=== PATIENT | male | born 1955 | race Caucasian/White ===

== ENCOUNTER → 2022-08-18 | Outpatient (CLI) | payer MEDICARE ==
[~2022-08-18] MED LIST: ATIVAN0.5 MG PO; OMEPRAZOLE20 M1 PO; ST. JOSEPH81 M2 PO
== END ==
LOC: RAD 08:36
DX: D17.9 Benign lipomatous neoplasm, unspecified (principal); R59.1 Generalized enlarged lymph nodes
CPT/HCPCS: Q9967

== ENCOUNTER → 2023-10-18 | Outpatient (CLI) | payer MEDICARE, MEDICAID | LOC: RAD 09:08 | DX: Z01.818 Encounter for other preprocedural examination (principal) ==

== ENCOUNTER 2023-12-06 09:45 | Outpatient (RCR) | payer MEDICARE, MEDICAID | END 2023-12-24 | LOC: PT | DX: Z48.89 Encounter for other specified surgical aftercare (principal); Z96.652 Presence of left artificial knee joint ==

== ENCOUNTER → 2024-01-29 | Outpatient (CLI) | payer MEDICARE, MEDICAID | LOC: RAD 15:14 → LAB 15:14 | DX: M19.031 Primary osteoarthritis, right wrist (principal); Z98.890 Other specified postprocedural states ==

== ENCOUNTER → 2024-02-08 | Outpatient (CLI) | payer MEDICARE, MEDICAID | LOC: RAD 08:13 | DX: M19.031 Primary osteoarthritis, right wrist (principal); M19.041 Primary osteoarthritis, right hand ==

== ENCOUNTER → 2024-08-25 | Outpatient (CLI) | payer SELFPAY | LOC: LAB 08:40 | DX: E87.6 Hypokalemia (principal) ==